=== PATIENT | female | born 1985 | race Two or more races ===

== ENCOUNTER 2024-09-08 17:39 | Emergency (ER) | payer MEDICAID, SELFPAY ==
[2024-09-08 17:51] VITALS: BP 145/105; PULSE 89; RESP 20; TEMP 37.2; O2SAT 98; BMI 30.2
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
[2024-09-08 19:28] LABS: HCG Qualitative,Urine Negative
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
[2024-09-08] MEDS: MORPHINE SULF INJ 10 MG/ML VIAL IM (20:58)
[2024-09-08 21:02] VITALS: BP 135/86; PULSE 82; RESP 18; TEMP 36.8; O2SAT 99
== END 2024-09-08 21:04 | disposition home or self-care (01) ==
PROVIDERS: Nurse Practitioner Family; Emergency Provider Emergency Medicine
DX: S32.10XA Unspecified fracture of sacrum, initial encounter for closed fracture (principal); Y04.8XXA Assault by other bodily force, initial encounter
CPT/HCPCS: 72100; 72220; 81025; 96372; 99284; J2270